=== PATIENT | female | born 1990 | race African-American/Black ===

== ENCOUNTER 2018-08-05 09:00 | Emergency (ER) | payer MEDICAID ==
[~2018-08-05] VITALS: Ht 154.9 cm; Wt 73.8 kg
[2018-08-05 09:01] VITALS: BP 118/63
[2018-08-05] MEDS ORDERED: DEXAMETHASONE 10 MG/ML VIAL IM ONE (10:15)
[2018-08-05] MEDS ORDERED: FAMOTIDINE 20MG TABLET PO ONE (10:15)
== END 2018-08-05 10:33 | disposition home or self-care (01) ==
LOC: ER 09:00
DX: S80.862A Insect bite (nonvenomous), left lower leg, initial encounter (principal); W57.XXXA Bitten or stung by nonvenomous insect and other nonvenomous arthropods, initial encounter; Y93.89 Activity, other specified; Y92.9 Unspecified place or not applicable
CPT/HCPCS: 96372; 99283; J1100

== ENCOUNTER 2019-03-06 09:52 | Emergency (ER) | payer MEDICAID ==
[~2019-03-06] VITALS: Ht 154.9 cm; Wt 71.0 kg
[2019-03-06 10:38] VITALS: BP 132/80
== END 2019-03-06 14:45 | disposition home or self-care (01) ==
LOC: ER 09:52
DX: L29.2 Pruritus vulvae (principal); N89.8 Other specified noninflammatory disorders of vagina; Z98.890 Other specified postprocedural states; Z87.19 Personal history of other diseases of the digestive system; Z87.442 Personal history of urinary calculi
CPT/HCPCS: 81025; 99283; Z7610

== ENCOUNTER 2019-03-09 13:07 | Emergency (ER) | payer MEDICAID ==
[~2019-03-09] VITALS: Ht 165.1 cm; Wt 70.0 kg
[2019-03-09] MEDS ORDERED: SODIUM CHLORIDE 0.9% 1,000 ML IV ONE (17:00)
[2019-03-09] MEDS ORDERED: DIPHENHYDRAMINE 50MG/ML VIAL IV ONE (17:00)
[2019-03-09] MEDS ORDERED: DEXAMETHASONE 10 MG/ML VIAL IV ONE (17:00)
[2019-03-09] MEDS ORDERED: CEFTRIAXONE 1 G PREMIX 50 ML IV ONE (17:00)
[2019-03-09] MEDS ORDERED: KETOROLAC 30MG/ML VIAL IV ONE (17:00)
[2019-03-09 18:08] VITALS: BP 122/74
== END 2019-03-09 18:09 | disposition home or self-care (01) ==
LOC: ER 13:23
DX: S50.862A Insect bite (nonvenomous) of left forearm, initial encounter (principal); R03.0 Elevated blood-pressure reading, without diagnosis of hypertension; K21.9 Gastro-esophageal reflux disease without esophagitis; Z87.442 Personal history of urinary calculi; Z98.890 Other specified postprocedural states; W57.XXXA Bitten or stung by nonvenomous insect and other nonvenomous arthropods, initial encounter; Y93.89 Activity, other specified; Y92.89 Other specified places as the place of occurrence of the external cause; Y99.8 Other external cause status
CPT/HCPCS: 96365; 96375; 99283; J0696; J1100; J1200; J1885; J7030; Z7610

== ENCOUNTER 2019-04-18 12:16 | Emergency (ER) | payer MEDICAID ==
[~2019-04-18] VITALS: Ht 154.9 cm; Wt 70.0 kg
[2019-04-18 12:41] VITALS: BP 117/48
[2019-04-18] MEDS ORDERED: FAMOTIDINE 20MG TABLET PO ONE (13:30)
[2019-04-18] MEDS ORDERED: DEXAMETHASONE 10 MG/ML VIAL IM ONE (13:30)
[2019-04-18] MEDS ORDERED: DIPHENHYDRAMINE 25MG CAPSULE PO ONE (13:30)
== END 2019-04-18 14:04 | disposition home or self-care (01) ==
LOC: ER 12:16
DX: S50.862A Insect bite (nonvenomous) of left forearm, initial encounter (principal); K21.9 Gastro-esophageal reflux disease without esophagitis; W57.XXXA Bitten or stung by nonvenomous insect and other nonvenomous arthropods, initial encounter; Y93.9 Activity, unspecified; Y92.9 Unspecified place or not applicable; Z87.442 Personal history of urinary calculi
CPT/HCPCS: 99283; J1100; Q0163

== ENCOUNTER 2019-04-28 12:25 | Emergency (ER) | payer MEDICAID ==
[~2019-04-28] VITALS: Ht 154.9 cm; Wt 70.0 kg
[2019-04-28 14:35] LABS: CLARITY URINE CLEAR (CLEAR); COLOR URINE YELLOW (YELLOW); KETONES URINE NEGATIVE (NEGATIVE); LEUKOCYTE ESTERASE URINE TRACE (NEGATIVE); NITRITE URINE NEGATIVE (NEGATIVE); OCCULT BLOOD URINE NEGATIVE (NEGATIVE); PH URINE 6.5 (4.5-8.0); PROTEIN URINE NEGATIVE (NEGATIVE); SPECIFIC GRAVITY URINE 1.023 (1.005-1.030); UROBILINOGEN URINE 0.2 E.U./dL (0.2-1.0)
[2019-04-28] MEDS ORDERED: AZITHROMYCIN 500 MG TABLET PO ONE (14:45)
[2019-04-28] MEDS ORDERED: CEFTRIAXONE SODIUM 250 MG/VIAL IM ONE (14:45)
[2019-04-28] MEDS ORDERED: LIDOCAINE HCL/PF 1% 10 MG/ML 5ML VIAL IJ ONE (14:45)
[2019-04-28 15:59] VITALS: BP 125/83
[2019-05-01 04:15] LABS: CHLAMYDIA TRACHOMATIS NAA Positive (Negative); NEISSERIA GONORRHOEAE NAA Negative (Negative)
== END 2019-04-28 16:01 | disposition home or self-care (01) ==
LOC: ER 12:25
DX: N76.0 Acute vaginitis (principal); A74.9 Chlamydial infection, unspecified; K21.9 Gastro-esophageal reflux disease without esophagitis; Z87.442 Personal history of urinary calculi
CPT/HCPCS: 81003; 81025; 87210; 87491; 87591; 96372; 99283; J0696; J3490

== ENCOUNTER 2019-05-13 16:38 | Emergency (ER) | payer MEDICAID, OTHER ==
[~2019-05-13] VITALS: Ht 154.9 cm; Wt 71.0 kg
[2019-05-13] MEDS ORDERED: CLINDAMYCIN HCL 150MG CAPSULE PO STA (22:02)
[2019-05-13 23:37] VITALS: BP 115/45
== END 2019-05-13 23:38 | disposition home or self-care (01) ==
LOC: ER 16:38
DX: L03.115 Cellulitis of right lower limb (principal); K21.9 Gastro-esophageal reflux disease without esophagitis
CPT/HCPCS: 99283

== ENCOUNTER 2019-07-11 09:31 | Emergency (ER) | payer OTHER ==
[~2019-07-11] VITALS: Ht 154.9 cm; Wt 73.0 kg
[2019-07-11 11:09] VITALS: BP 115/72
== END 2019-07-11 14:44 | disposition home or self-care (01) ==
LOC: ER 09:31
DX: I88.8 Other nonspecific lymphadenitis (principal); K21.9 Gastro-esophageal reflux disease without esophagitis; S10.96XA Insect bite of unspecified part of neck, initial encounter; W57.XXXA Bitten or stung by nonvenomous insect and other nonvenomous arthropods, initial encounter; Y93.9 Activity, unspecified; Y92.9 Unspecified place or not applicable; Z87.442 Personal history of urinary calculi
CPT/HCPCS: 99281

== ENCOUNTER 2019-07-11 22:13 | Emergency (ER) | payer OTHER ==
[~2019-07-11] VITALS: Ht 154.9 cm; Wt 73.0 kg
[2019-07-11] MEDS ORDERED: FAMOTIDINE 20MG/2ML VIAL IV ONE (22:45)
[2019-07-11] MEDS ORDERED: METHYLPREDNISOLONE SOD SUCC 125 MG/2 ML VIAL IV ONE (22:45)
[2019-07-11] MEDS ORDERED: DIPHENHYDRAMINE 50MG/ML VIAL IV ONE (22:45)
[2019-07-11] MEDS ORDERED: SODIUM CHLORIDE 0.9% 1000ML BAG (SEPSIS BOLUS) IV ONE (22:45)
[2019-07-11] MEDS ORDERED: PIPERACILLIN/TAZ 3.375G PREMIX 50 ML IV ONE (22:45)
[2019-07-11] MEDS ORDERED: VANCOMYCIN 1 G PREMIX 200 ML IV ONE (22:45)
[2019-07-11 22:54] LABS: BASOPHILS % 0.5 % (0.0-2.0); EOSINOPHILS % 2.1 % (0.0-5.0); HEMATOCRIT. 40.1 % (36.0-48.0); HEMOGLOBIN. 13.6 g/dL (12.0-16.0); LYMPHOCYTES % 24.3 % (20.0-50.0); MEAN CORPUSCULAR HEMOGLOBIN 31.4 pg (28.0-32.0); MEAN CORPUSCULAR VOLUME 92.8 fL (81.0-99.0); MEAN PLATELET VOLUME 8.7 fl (7.4-10.4); MONOCYTES % 8.1 % (2.0-8.0); PLATELET 233 x1000/uL (130-400); RED BLOOD CELL COUNT 4.32 mill/uL (4.2-5.4); RED CELL DISTRIBUTION WIDTH 13.4 % (11.6-14.6)
[2019-07-11 22:59] LABS: CHLORIDE 108 mEq/L (98-107)
[2019-07-11 23:02] LABS: HCG SCREEN NEGATIVE
[2019-07-11] MEDS ORDERED: KETOROLAC 30MG/ML VIAL IV ONE (23:30)
[2019-07-11] MEDS ORDERED: ONDANSETRON HCL 4MG/2ML INJ IV ONE (23:45)
[2019-07-12] MEDS ORDERED: PREDNISONE 20MG TABLET PO ONE (01:45)
[2019-07-12 02:29] VITALS: BP 118/76
== END 2019-07-12 02:31 | disposition home or self-care (01) ==
LOC: ER 22:13 → CANBEDREQ 07-12 03:24
DX: S60.461A Insect bite (nonvenomous) of left index finger, initial encounter (principal); K21.9 Gastro-esophageal reflux disease without esophagitis; W57.XXXA Bitten or stung by nonvenomous insect and other nonvenomous arthropods, initial encounter; Y93.9 Activity, unspecified; Y92.9 Unspecified place or not applicable
CPT/HCPCS: 36415; 73140; 80053; 81025; 83605; 84145; 84703; 85025; 85610; 87040; 87086; 96365; 96366; 96368; 96375; 99284; J1200; J1885; J2405; J2543; J2930; J3370; J3490; J7030; J7512; Z7610

== ENCOUNTER 2019-09-14 12:00 | Emergency (ER) | payer OTHER ==
[~2019-09-14] VITALS: Ht 165.1 cm; Wt 70.0 kg
[2019-09-14] MEDS ORDERED: ACETAMINOPHEN 325MG TABLET PO PRN (15:00)
[2019-09-14 15:34] LABS: CHLORIDE 106 mEq/L (98-107)
[2019-09-14 15:35] LABS: BASOPHILS % 0.7 % (0.0-2.0); EOSINOPHILS % 0.4 % (0.0-5.0); HEMATOCRIT. 42.9 % (36.0-48.0); HEMOGLOBIN. 14.3 g/dL (12.0-16.0); LYMPHOCYTES % 35.4 % (20.0-50.0); MEAN CORPUSCULAR HEMOGLOBIN 31.2 pg (28.0-32.0); MEAN CORPUSCULAR VOLUME 93.5 fL (81.0-99.0); MEAN PLATELET VOLUME 9.1 fl (7.4-10.4); MONOCYTES % 6.9 % (2.0-8.0); NEUTROPHILS % 56.6 % (40.0-76.0); PLATELET 211 x1000/uL (130-400); RED BLOOD CELL COUNT 4.59 mill/uL (4.2-5.4); RED CELL DISTRIBUTION WIDTH 13.6 % (11.6-14.6)
[2019-09-14 15:45] LABS: B-HCG QUANTITATIVE < 1 mIU/mL (<3)
[2019-09-14 16:39] LABS: CLARITY URINE CLEAR (CLEAR); COLOR URINE YELLOW (YELLOW); KETONES URINE 2+ (NEGATIVE); LEUKOCYTE ESTERASE URINE NEGATIVE (NEGATIVE); NITRITE URINE NEGATIVE (NEGATIVE); OCCULT BLOOD URINE NEGATIVE (NEGATIVE); PH URINE 5.5 (4.5-8.0); PROTEIN URINE NEGATIVE (NEGATIVE); SPECIFIC GRAVITY URINE 1.022 (1.005-1.030)
[2019-09-14 17:37] VITALS: BP 122/76
== END 2019-09-14 17:37 | disposition home or self-care (01) ==
LOC: ER 12:00
DX: M54.9 Dorsalgia, unspecified (principal); N93.9 Abnormal uterine and vaginal bleeding, unspecified; K21.9 Gastro-esophageal reflux disease without esophagitis; Z98.890 Other specified postprocedural states
CPT/HCPCS: 36415; 76856; 80053; 81003; 81025; 84702; 85025; 86850; 86900; 99284

== ENCOUNTER 2020-07-09 09:46 | Emergency (ER) | payer MEDICAID, OTHER ==
[~2020-07-09] VITALS: Ht 170.2 cm; Wt 65.0 kg
[2020-07-09 09:49] VITALS: BP 123/79
[2020-07-09] MEDS ORDERED: IBUPROFEN 600MG TABLET PO ONE (10:30)
[2020-07-09] MEDS ORDERED: ACETAMINOPHEN 325MG TABLET PO ONE (11:00)
== END 2020-07-09 11:01 | disposition home or self-care (01) ==
LOC: ER 09:46
DX: N90.7 Vulvar cyst (principal); M79.651 Pain in right thigh
CPT/HCPCS: 99281

== ENCOUNTER 2021-05-01 11:26 | Emergency (ER) | payer MEDICAID, OTHER ==
[~2021-05-01] VITALS: Ht 154.9 cm; Wt 70.0 kg
[2021-05-01] MEDS ORDERED: CETIRIZINE 10MG TABLET PO STA (12:06)
[2021-05-01] MEDS ORDERED: IBUPROFEN 400MG TABLET PO ONE (12:15)
[2021-05-01] MEDS ORDERED: ACETAMINOPHEN 325MG TABLET PO ONE (12:15)
[2021-05-01] MEDS ORDERED: TC025C15 TP (12:24)
[2021-05-01] MEDS ORDERED: TOPUD MT (12:24)
[2021-05-01 12:44] VITALS: BP 128/69
== END 2021-05-01 12:39 | disposition home or self-care (01) ==
LOC: ER 11:26
DX: S50.362A Insect bite (nonvenomous) of left elbow, initial encounter (principal); W57.XXXA Bitten or stung by nonvenomous insect and other nonvenomous arthropods, initial encounter; Y93.89 Activity, other specified; Y92.89 Other specified places as the place of occurrence of the external cause; Y99.8 Other external cause status
CPT/HCPCS: 81025; 99284

== ENCOUNTER 2021-06-08 20:05 | Emergency (ER) | payer MEDICAID ==
[~2021-06-08] VITALS: Ht 154.9 cm; Wt 73.0 kg
[~2021-06-08 20:05] MED LIST: TC025C15 TP; TOPUD MT
[2021-06-08 21:54] VITALS: BP 121/82
== END 2021-06-09 02:30 | disposition home or self-care (01) ==
LOC: ER 20:05
DX: N90.7 Vulvar cyst (principal)
CPT/HCPCS: 81025; 99282

== ENCOUNTER 2021-10-05 08:54 | Emergency (ER) | payer MEDICAID ==
[~2021-10-05] VITALS: Ht 154.9 cm; Wt 76.3 kg
[~2021-10-05 08:54] MED LIST changes: +CEPH500C2 MT; +HYDR-4001 MT
[2021-10-05] MEDS ORDERED: ACETAMINOPHEN 325MG TABLET PO ONE (09:15)
[2021-10-05] MEDS ORDERED: IBUPROFEN 600MG TABLET PO ONE (09:30)
[2021-10-05 09:33] LABS: CHLORIDE 106 mEq/L (98-107)
[2021-10-05 09:39] LABS: BASOPHILS % 0.7 % (0.0-2.0); EOSINOPHILS % 1.1 % (0.0-5.0); HEMATOCRIT. 41.6 % (36.0-48.0); HEMOGLOBIN. 13.6 g/dL (12.0-16.0); LYMPHOCYTES % 32.1 % (20.0-50.0); MEAN CORPUSCULAR HEMOGLOBIN 30.5 pg (28.0-32.0); MEAN CORPUSCULAR VOLUME 93.4 fL (81.0-99.0); MEAN PLATELET VOLUME 8.8 fl (7.4-10.4); MONOCYTES % 8.8 % (2.0-8.0); NEUTROPHILS % 57.3 % (40.0-76.0); PLATELET 260 x1000/uL (130-400); RED BLOOD CELL COUNT 4.45 mill/uL (4.2-5.4); RED CELL DISTRIBUTION WIDTH 13.1 % (11.6-14.6)
[2021-10-05 09:40] VITALS: BP 120/75
[2021-10-05 09:46] LABS: HCG SCREEN NEGATIVE
[2021-10-05] MEDS ORDERED: DEXAMETHASONE 10 MG/ML VIAL IV ONE (10:30)
[2021-10-05] MEDS ORDERED: AMOX-494 MT (11:32)
[2021-10-05] MEDS ORDERED: IBUP-2030 MT ×2 (11:32)
== END 2021-10-05 13:20 | disposition home or self-care (01) ==
LOC: ER 08:54
DX: J18.9 Pneumonia, unspecified organism (principal); Z98.890 Other specified postprocedural states
CPT/HCPCS: 36415; 71045; 80053; 83880; 84484; 84703; 85025; 85379; 87426; 93005; 96374; 99285; J1100

== ENCOUNTER 2021-10-05 14:47 | Inpatient (IN) | payer MEDICAID, OTHER ==
[~2021-10-05] VITALS: Ht 154.9 cm; Wt 76.2 kg
[~2021-10-05 14:47] MED LIST changes: +AMOX-494 MT; +IBUP-2030 MT
[2021-10-05] MEDS ORDERED: AZITHROMYCIN 500MG/250ML 250 ML IV ONE (16:30)
[2021-10-05] MEDS ORDERED: CEFTRIAXONE 1 G PREMIX 50 ML IV ONE (16:30)
[2021-10-05] MEDS ORDERED: SODIUM CHLORIDE 0.9% 1,000 ML IV ONE (19:15)
[2021-10-06] MEDS ORDERED: CEFTRIAXONE 1 G PREMIX 50 ML IV SCH (11:30)
[2021-10-06] MEDS ORDERED: IPRATROPIUM/ALBUTEROL 0.5-3(2.5)MG/3ML NEB HHN PRN (11:30)
[2021-10-06] MEDS ORDERED: ONDANSETRON HCL 4MG/2ML INJ IV PRN (12:15)
[2021-10-06 14:37] VITALS: BP 114/90
[2021-10-06 15:23] VITALS: BP 114/90
[2021-10-06] MEDS ORDERED: CEFTRIAXONE 1,000 MG in DEXTROSE 5% WATER 50 ML IV SCH (17:00)
[2021-10-06 20:00] VITALS: BP 103/63
[2021-10-07] VITALS: BP 105/60
[2021-10-07 03:01] LABS: *AMPHETAMINES SCREEN URINE NEGATIVE (NEGATIVE); *BARBITURATES SCREEN URINE NEGATIVE (NEGATIVE); *BENZODIAZEPINES SCREEN URINE NEGATIVE (NEGATIVE); *COCAINE SCREEN URINE NEGATIVE (NEGATIVE)
[2021-10-07 03:03] LABS: CANNABINOID URINE SCREEN NEGATIVE (NEGATIVE); METHADONE URINE SCREEN NEGATIVE (NEGATIVE); OPIATES URINE SCREEN NEGATIVE (NEGATIVE); PHENCYCLIDINE URINE SCREEN NEGATIVE (NEGATIVE)
[2021-10-07 04:00] VITALS: BP 99/68
[2021-10-07 08:00] VITALS: BP 93/52
[2021-10-07 12:00] VITALS: BP 96/51
[2021-10-07] MEDS: IBUPROFEN 600MG TABLET PO PRN ×2 (13:07→13:08)
[2021-10-07 16:00] VITALS: BP 111/63
[2021-10-07 17:36] VITALS: BP 111/63
== END 2021-10-07 18:00 | disposition home or self-care (01) | DRG 139 ==
LOC: ER 14:47 → MICUSO 22:09 → 8WST 10-06 14:58
PROVIDERS: ADMIT Internal Medicine; ATTEND Internal Medicine
DX: J18.9 Pneumonia, unspecified organism (principal); Z20.822 Contact with and (suspected) exposure to COVID-19; Z98.891 History of uterine scar from previous surgery
CPT/HCPCS: 36415; 80305; 83605; 84484; 93005; 99285; J0456; J0696; J2405; J7030; J7060

== ENCOUNTER 2021-10-18 00:32 | Emergency (ER) | payer MEDICAID, OTHER ==
[~2021-10-18] VITALS: Ht 154.9 cm; Wt 76.0 kg
[~2021-10-18 00:32] MED LIST changes: -CEPH500C2 MT; -IBUP-2030 MT
[2021-10-18] MEDS ORDERED: LORAZEPAM 0.5MG TABLET PO ONE (01:00)
[2021-10-18 01:42] LABS: BASOPHILS % 0.7 % (0.0-2.0); EOSINOPHILS % 0.9 % (0.0-5.0); HEMOGLOBIN. 12.4 g/dL (12.0-16.0); LYMPHOCYTES % 39.9 % (20.0-50.0); MEAN CORPUSCULAR VOLUME 93.1 fL (81.0-99.0); MEAN PLATELET VOLUME 8.6 fl (7.4-10.4); MONOCYTES % 5.9 % (2.0-8.0); NEUTROPHILS % 52.6 % (40.0-76.0); PLATELET 249 x1000/uL (130-400); RED BLOOD CELL COUNT 3.86 mill/uL (4.2-5.4); RED CELL DISTRIBUTION WIDTH 12.5 % (11.6-14.6)
[2021-10-18 01:43] LABS: CHLORIDE 108 mEq/L (98-107)
[2021-10-18 01:59] LABS: HCG SCREEN NEGATIVE
[2021-10-18 03:00] VITALS: BP 122/82
== END 2021-10-18 03:10 | disposition home or self-care (01) ==
LOC: ER 00:32
DX: R07.89 Other chest pain (principal); R53.1 Weakness; R42 Dizziness and giddiness; J45.909 Unspecified asthma, uncomplicated; Z87.01 Personal history of pneumonia (recurrent); Z98.890 Other specified postprocedural states; Z79.899 Other long term (current) drug therapy
CPT/HCPCS: 36415; 71045; 80053; 84703; 85025; 93005; 99285; Z7610

== ENCOUNTER 2023-07-05 10:36 | Emergency (ER) | payer MEDICAID, OTHER ==
[~2023-07-05] VITALS: Ht 162.6 cm; Wt 91.0 kg
[2023-07-05 10:45] VITALS: TEMP 98.6; O2SAT 100
[2023-07-05 11:45] VITALS: BP 128/82; PULSE 89; RESP 18
[2023-07-05] MEDS ORDERED: IBUPROFEN 600MG TABLET PO ONE (11:45)
[2023-07-05] MEDS ORDERED: METH-653 MT (12:52)
[2023-07-05] MEDS ORDERED: IBUP-2029 MT (12:52)
== END 2023-07-05 13:03 | disposition home or self-care (01) ==
LOC: ER 10:36
DX: S63.92XA Sprain of unspecified part of left wrist and hand, initial encounter (principal); J45.909 Unspecified asthma, uncomplicated; Z98.890 Other specified postprocedural states; V89.2XXA Person injured in unspecified motor-vehicle accident, traffic, initial encounter; Y93.89 Activity, other specified; Y92.89 Other specified places as the place of occurrence of the external cause; Y99.8 Other external cause status
CPT/HCPCS: 29125; 73110; 73130; 99284

== ENCOUNTER 2023-09-21 08:56 | Emergency (ER) | payer MEDICAID, OTHER ==
[~2023-09-21] VITALS: Ht 154.9 cm; Wt 81.6 kg
[~2023-09-21 08:56] MED LIST changes: +IBUP-2029 MT; +METH-653 MT
[2023-09-21 09:32] VITALS: O2SAT 97
[2023-09-21 10:22] LABS: CLARITY URINE CLOUDY (CLEAR); COLOR URINE DARK YELLOW (YELLOW); GLUCOSE URINE NEGATIVE (NEGATIVE); KETONES URINE 2+ (NEGATIVE); LEUKOCYTE ESTERASE URINE NEGATIVE (NEGATIVE); NITRITE URINE NEGATIVE (NEGATIVE); OCCULT BLOOD URINE NEGATIVE (NEGATIVE); PROTEIN URINE 1+ (NEGATIVE)
[2023-09-21 10:27] LABS: EOSINOPHILS % 0.3 % (0.0-5.0); HEMATOCRIT. 42.1 % (36.0-48.0); HEMOGLOBIN. 14.2 g/dL (12.0-16.0); LYMPHOCYTES % 24.5 % (20.0-50.0); MEAN CORPUSCULAR HEMOGLOBIN 32.5 pg (28.0-32.0); MEAN CORPUSCULAR HGB CONC 33.6 g/dL (31.0-37.0); MEAN CORPUSCULAR VOLUME 96.7 fL (81.0-99.0); MEAN PLATELET VOLUME 8.5 fl (7.4-10.4); NEUTROPHILS % 66.2 % (40.0-76.0); PLATELET 260 x1000/uL (130-400); RED BLOOD CELL COUNT 4.35 mill/uL (4.2-5.4); RED CELL DISTRIBUTION WIDTH 14.1 % (11.6-14.6); WHITE BLOOD COUNT 6.4 x1000/uL (4.5-11.0)
[2023-09-21 10:44] LABS: PROTHROMBIN TIME 10.3 sec (9.6-11.0)
[2023-09-21] MEDS ORDERED: FAMOTIDINE 20MG/2ML VIAL IV ONE (11:15)
[2023-09-21] MEDS ORDERED: ONDANSETRON HCL 4MG/2ML INJ IV ONE (11:15)
[2023-09-21] MEDS ORDERED: SODIUM CHLORIDE 0.9% 1,000 ML IV ONE (11:15)
[2023-09-21 11:53] LABS: ALANINE AMINOTRANSFERASE 45 IU/L (10-49); ALBUMIN 4.4 g/dL (3.2-4.8); ASPARTATE AMINOTRANSFERASE 48 IU/L (<34); BILIRUBIN TOTAL 0.6 mg/dL (0.1-1.0); CALCIUM 9.7 mg/dL (8.7-10.4); CARBON DIOXIDE 25 mEq/L (21-32); CHLORIDE 99 mEq/L (98-107); CREATININE 0.7 mg/dL (0.6-1.0); GLUCOSE 84 mg/dL (70-105); POTASSIUM 3.7 mEq/L (3.5-5.1); PROTEIN TOTAL 8.2 g/dL (6.0-8.3); SODIUM 137 mEq/L (136-145); UREA NITROGEN BLOOD 8 mg/dL (9-23)
[2023-09-21 12:16] LABS: MUCUS URINE 3+ /lpf (< = 2+); SQUAMOUS EPITHELIAL CELL URINE 2+ /lpf (RARE/1+)
[2023-09-21 12:17] LABS: HYALINE CASTS URINE 0-5 /lpf; RBC URINE 0-2 /hpf (0-2); WBC URINE 0-2 /hpf (0-2)
[2023-09-21 12:18] LABS: BACTERIA URINE 3+
[2023-09-21 12:18] LABS: TROPONIN I HIGH SENSITIVITY < 4 ng/L (3.0-34)
[2023-09-21] MEDS ORDERED: FAMO-135 MT (14:18)
[2023-09-21] MEDS ORDERED: MAG-55 MT (14:18)
[2023-09-21 15:01] VITALS: BP 132/72; PULSE 85; RESP 19; TEMP 98.3
== END 2023-09-21 15:07 | disposition home or self-care (01) ==
LOC: ER 09:31
DX: R11.2 Nausea with vomiting, unspecified (principal)
CPT/HCPCS: 80053; 81003; 81025; 83690; 85025; 85610; 84484; 36415; 96361; 96374; 96375; 99284; J3490; J2405; J7030; Z7610 ×2